=== PATIENT | female | born 1940 | race Caucasian/White ===

== ENCOUNTER → 2020-12-31 15:34 | Outpatient (BNVA) | payer OTHER, SELFPAY | PROVIDERS: PCP Family Medicine; Visit Provider Family Medicine | DX: R53.83 Other fatigue (principal) | CPT/HCPCS: 80053; 82306; 82607; 83540; 84443 ==

== ENCOUNTER → 2021-01-14 09:09 | Outpatient (BNVA) | payer OTHER, SELFPAY | PROVIDERS: PCP Family Medicine; Visit Provider Family Medicine | DX: R74.8 Abnormal levels of other serum enzymes (principal); R73.09 Other abnormal glucose | CPT/HCPCS: 80076; 82951; 86705; 86706; 86709; 86803; 87340 ==

== ENCOUNTER → 2023-09-29 16:21 | Outpatient (BNVA) | payer OTHER, SELFPAY | PROVIDERS: PCP Family Medicine; Visit Provider Nurse Practitioner Family | DX: J06.9 Acute upper respiratory infection, unspecified (principal) | CPT/HCPCS: 80053; 85025 ==